=== PATIENT | male | born 1990 | race Two or more races ===

== ENCOUNTER 2016-09-05 00:30 | Emergency (ER) | payer SELFPAY ==
[~2016-09-05] VITALS: Ht 175.3 cm; Wt 95.3 kg
[2016-09-05] MEDS ORDERED: NKM (00:39)
[2016-09-05 00:50] VITALS: BP 130/77
[2016-09-05] MEDS ORDERED: IBUPROFEN600 MG ORAL (01:07)
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
[2016-09-05 01:30] VITALS: BP 131/77
[2016-09-05 01:36] VITALS: BP 130/77
== END 2016-09-05 01:35 | disposition home or self-care (01) ==
LOC: EMR 00:48
DX: M54.9 Dorsalgia, unspecified (principal); S60.212A Contusion of left wrist, initial encounter; S60.211A Contusion of right wrist, initial encounter; X58.XXXA Exposure to other specified factors, initial encounter; Y92.89 Other specified places as the place of occurrence of the external cause; M25.562 Pain in left knee; M25.561 Pain in right knee; G89.29 Other chronic pain
CPT/HCPCS: 99282